=== PATIENT | female | born 1985 | race Caucasian/White ===

== ENCOUNTER 2018-05-03 13:55 | Emergency (ER) | payer OTHER ==
[~2018-05-03] VITALS: Ht 160 cm; Wt 95.4 kg
[2018-05-03 14:00] VITALS: BP 121/66
--- NOTE | 2018-05-03 14:00 | NUR ---
PATIENT AMBULATED TO ER BED 8.
--- NOTE | 2018-05-03 14:17 | NUR ---
PT C/O L EAR PAIN. WAS SEEN AT [facility] AT GIVEN DROPS AND ANTIOBIOTIC, NO RELIEF ALSO C/O COLD SYMPTOMS. VSS; PATIENT POSITIONED FOR COMFORT; HOB ELEVATED; BEDRAILS UP X1; BED DOWN. ER MD MADE AWARE OF PT STATUS.
--- NOTE | 2018-05-03 14:45 | NUR ---
Patient being evaluated by physician at bedside.
[2018-05-03 15:03] VITALS: BP 119/75
--- NOTE | 2018-05-03 15:03 | NUR ---
Patient discharged with v/s stable. Written and verbal after care instructions given and explained. Patient alert, oriented and verbalized understanding of instructions. Ambulatory with steady gait. All questions addressed prior to discharge. ID band removed. Patient advised to follow up with PMD. Rx of AUGMENTIN 875MG given. Patient educated on indication of medication including possible reaction and side effects. Opportunity to ask questions provided and answered.
== END 2018-05-03 15:03 | disposition home or self-care (01) ==
LOC: MED 13:55
DX: H66.43 Suppurative otitis media, unspecified, bilateral (principal)
CPT/HCPCS: 99283

== ENCOUNTER 2020-02-08 22:26 | Emergency (ER) | payer OTHER ==
[~2020-02-08] VITALS: Ht 160 cm; Wt 82.6 kg
[2020-02-08 22:29] VITALS: BP 129/69
[2020-02-08] MEDS ORDERED: KETOROLAC 60 MG/2 ML VIAL IM ONE (22:40)
[2020-02-08] MEDS ORDERED: HYDROcodone/APAP 5/325 MG 1 TAB TAB PO ONE (23:20)
[2020-02-09 00:36] VITALS: BP 129/69
== END 2020-02-09 00:36 | disposition home or self-care (01) ==
LOC: MED 22:26
DX: S82.892A Other fracture of left lower leg, initial encounter for closed fracture (principal); Z90.49 Acquired absence of other specified parts of digestive tract; W18.39XA Other fall on same level, initial encounter; Y93.89 Activity, other specified; Y92.89 Other specified places as the place of occurrence of the external cause; Y99.8 Other external cause status
CPT/HCPCS: 29515; 73590; 73610; 73630; 96372; 99284; J1885; Q0092

== ENCOUNTER 2020-04-19 14:49 | Emergency (ER) | payer OTHER ==
[~2020-04-19] VITALS: Ht 160 cm; Wt 110.7 kg
[2020-04-19 14:58] VITALS: BP 106/68
[2020-04-19 15:27] VITALS: BP 106/68
== END 2020-04-19 15:27 | disposition home or self-care (01) ==
LOC: MED 14:49
DX: R07.9 Chest pain, unspecified (principal); Z98.51 Tubal ligation status; Z90.49 Acquired absence of other specified parts of digestive tract
CPT/HCPCS: 93005; 99283

== ENCOUNTER 2020-07-30 17:37 | Observation (INO) | payer OTHER, SELFPAY ==
[~2020-07-30] VITALS: Ht 160 cm; Wt 112.9 kg
[2020-07-30 17:45] VITALS: BP 125/52
--- NOTE | 2020-07-30 17:55 | NUR ---
PATIENT AMBULATED TO BED 11.
--- NOTE | 2020-07-30 18:01 | NUR ---
DR CHENEY AT BEDSIDE FOR EVALUATION
--- NOTE | 2020-07-30 18:05 | NUR ---
YULIANA RN AT BEDSIDE FOR EKG
--- NOTE | 2020-07-30 18:07 | NUR ---
RAD AT BEDSIDE
--- NOTE | 2020-07-30 18:13 | NUR ---
LAB AT BEDSIDE
--- NOTE | 2020-07-30 18:15 | NUR ---
35 Y/O MALE C/O LEFT CHEST PAIN RADIATING TO LEFT ARM/SHOULDER. PT STATES PAIN HAS BEEN INTERMITTENT SINCE 03/2020 BUT THE LAST X5 DAYS HAVE BEEN WORSE. PT STATES SHE HAS NAUSEA/VOMITING AND DIARRHEA X1 MONTH. O2 SAT 97% AT THIS TIME. PT DENIES PAIN AT THIS TIME. SHE STATES SHE HAS NUMBNESS IN HER LEFT SHOULDER AT THIS TIME AND CHEST PAIN WHEN SHE BREATHS IN. ON ASSESSMENT, HYPERACTIVE BOWEL SOUNDS ALL FOUR QUADRANTS AND CLEAR BREATH SOUNDS BILATERAL THROUGHOUT. PT STATED SHE HAS BEEN FATIGUED/TIRED/ LACK OF ENERGY X5 DAYS. PT STATES SHE HAS BEEN UNDER A LOT OF STRESS LATELY. PT IS A&O X4 WITH EVEN AND UNLABORED RESPIRATIONS. PT LAYING IN BED WITH IT IN THE LOWEST POSITION, BRAKES LOCKED, X1 SIDERAIL UP. COVID TESTED POSITIVE 06/10/20 & NEGATIVE 07/02/20 PMH: ANXIETY, PANIC ATTACKS, SUBSTANCE ABUSE- METH- 8MOS CLEAN. NKA
[2020-07-30 18:18] LABS: BASOPHILS % (AUTO) 0.9 % (0.0-2.0); EOSINOPHILS # (AUTO) 0.1 K/uL (0-0.4); EOSINOPHILS % (AUTO) 2.5 % (0.0-4.0); HEMATOCRIT 37.3 % (36-48); HEMOGLOBIN 12.7 g/dL (12.0-16.0); LYMPHOCYTES # (AUTO) 1.5 K/uL (2.5-16.5); LYMPHOCYTES % (AUTO) 29.4 % (20.5-51.1); MEAN CORPUSCULAR HEMOGLOBIN 28 pg (27-31); MEAN CORPUSCULAR HGB CONC 34 g/dL (33-37); MEAN CORPUSCULAR VOLUME 81.9 fL (80-94); MONOCYTES # (AUTO) 0.6 K/uL (0.8-1.0); MONOCYTES % (AUTO) 11.3 % (1.7-9.3); NEUTROPHILS # (AUTO) 2.8 K/uL (1.8-7.7); NEUTROPHILS % (AUTO) 55.9 % (42.2-75.2); PLATELET COUNT (AUTO) 280 K/uL (140-450); RED BLOOD CELL COUNT(AUTO) 4.55 MIL/uL (4.20-5.40); RED CELL DISTRIBUTION WIDTH 15.7 % (11.6-13.7)
[2020-07-30 18:32] LABS: ALBUMIN 3.6 g/dL (3.4-5.0); ANION GAP 13.3 (8-16); CARBON DIOXIDE 25.9 mmol/L (21-32); CREATININE 0.5 mg/dL (0.6-1.3); POTASSIUM 3.2 mmol/L (3.5-5.1); TOTAL BILIRUBIN 0.4 mg/dL (0.0-1.0)
--- NOTE | 2020-07-30 18:50 | NUR ---
PT TAKEN TO CT VIA W/C
--- NOTE | 2020-07-30 19:20 | NUR ---
RECEIVED REPORT FROM SCOTTY HANNON
--- NOTE | 2020-07-30 19:21 | NUR ---
REPORT GIVEN TO DADA HANNON. TRANSFER OF CARE AT THIS TIME
[2020-07-30] MEDS ORDERED: LORazepam 1 MG TAB PO ONE (19:25)
--- NOTE | 2020-07-30 19:26 | NUR ---
PT REMAINS ON BEDSIDE MONITOR, V/S WNL. PT C/O SHARP APIN TO LEFT CHEST RADIATINGINTO HER BACK 10/17. PT STATES SHE IS VERY ANXIOUS, REQUESTING MED FOR ANXIETY, AWARE
--- NOTE | 2020-07-30 19:53 | NUR ---
PT RESTING MORE COMFORTABLY AT THIS TIME, NOT FEELING SO ANXIOUS
--- NOTE | 2020-07-30 21:06 | NUR ---
PT STILL C/O SHARP APIN RO RIGHT CHEST THAT RADIATES TO BACK AND NUMBNESS TO LEFT SIDE
[2020-07-30] MEDS ORDERED: HYDROcodone/APAP 5/325 MG 1 TAB TAB PO ONE (21:20)
--- NOTE | 2020-07-30 21:25 | NUR ---
VITA SWAB COLLECTED AND TAKEN TO LAB
--- NOTE | 2020-07-30 21:41 | NUR ---
BELONGINGS LIST COMPLETED AND VERIFIED BY PT AND SIGNED
[2020-07-30] MEDS ORDERED: ACETAMINOPHEN 325 MG TAB PO PRN (22:15)
[2020-07-30] MEDS ORDERED: HYDROmorphone PFS 2 MG/ML SYR IVP PRN (22:15)
--- NOTE | 2020-07-30 22:45 | NUR ---
BROUGHT MORE BELONGINGS FOR PT, NEW ITEMS ENTERED ON BELONGING LIST. PT ALSO STATES HER PAIN HAS INCREASED 8/10 TO SHOULDER
--- NOTE | 2020-07-30 23:05 | NUR ---
Hand-off report received via phone from JACOB Simms RN for continuity of care for Virginia Guillen with Left chest Pain radiating to left shoulder and arm, nausea/vomiting and diarrhea for persisting for past 5 days but initially began one month ago. Medical history of Meth abuse with last use December 2019 and history of panic attacks. Awaiting arrival to 103A.
--- NOTE | 2020-07-30 23:30 | NUR ---
Admission assessment initiated. Pt arrived to floor A&Ox4 with c/o Chest pain. Tele in place SR 90's. Pt appears relaxed and calm.
--- NOTE | 2020-07-30 23:43 | NUR ---
Patient will be admitted to care of DR CRAWLEY. Admited to TELE. Will go to room 103A. Belongings list completed. Report to MILES HANNON.
[2020-07-31] VITALS: BP 101/51
[2020-07-31] MEDS: LORazepam 0.5 MG TAB PO PRN ×3 (02:10→18:29)
[2020-07-31 04:00] VITALS: BP 98/58
--- NOTE | 2020-07-31 07:30 | NUR ---
Hand off report to on-coming RN for continuity of care. Pt swabbed for MRSA bilat nares. Speciment to lab.
[2020-07-31 07:47] LABS: BASOPHILS % (AUTO) 0.9 % (0.0-2.0); EOSINOPHILS # (AUTO) 0.1 K/uL (0-0.4); EOSINOPHILS % (AUTO) 3.4 % (0.0-4.0); HEMATOCRIT 35.1 % (36-48); HEMOGLOBIN 11.9 g/dL (12.0-16.0); LYMPHOCYTES # (AUTO) 1.6 K/uL (2.5-16.5); LYMPHOCYTES % (AUTO) 37.9 % (20.5-51.1); MEAN CORPUSCULAR HEMOGLOBIN 28 pg (27-31); MEAN CORPUSCULAR HGB CONC 34 g/dL (33-37); MEAN CORPUSCULAR VOLUME 82.6 fL (80-94); MONOCYTES # (AUTO) 0.5 K/uL (0.8-1.0); MONOCYTES % (AUTO) 12.4 % (1.7-9.3); NEUTROPHILS # (AUTO) 1.9 K/uL (1.8-7.7); NEUTROPHILS % (AUTO) 45.4 % (42.2-75.2); PLATELET COUNT (AUTO) 267 K/uL (140-450); RED BLOOD CELL COUNT(AUTO) 4.25 MIL/uL (4.20-5.40); RED CELL DISTRIBUTION WIDTH 15.5 % (11.6-13.7); WHITE BLOOD COUNT (AUTO) 4.1 K/uL (4.8-10.8)
[2020-07-31 07:48] LABS: CHOL/HDL RATIO 3.9 (1-4.5)
[2020-07-31 07:52] LABS: ALBUMIN 3.3 g/dL (3.4-5.0); ANION GAP 13.2 (8-16); CREATININE 0.5 mg/dL (0.6-1.3); POTASSIUM 3.2 mmol/L (3.5-5.1); TOTAL BILIRUBIN 0.3 mg/dL (0.0-1.0)
[2020-07-31 08:00] VITALS: BP 99/66
--- NOTE | 2020-07-31 08:07 | NUR ---
PATIENT IS AOX4, SINUS RHYTHM ON GEOSCIENCES FACULTY MEMBER, RESPIRATIONS EVEN AND UNLABORED ON ROOM AIR. REPORTS MILD CHEST TIGHTNESS/PRESSURE RADIATING TO LEFT ARM. ALSO REPORTS NUMBNESS/WEAKNESS IN BILATERAL LOWER EXTREMITIES. PATIENT WAS ABLE TO AMBULATE INDEPENDENTLY TO BATHROOM WITH NO ISSUES. HAS BEEN HAVING DIARRHEA, LAST EPISODE 07/31. TOLERATING BREAKFAST WELL WITH NO N/V. WILL CONTINUE TO MONITOR.
[2020-07-31] MEDS ORDERED: ASPIRIN 81 MG TAB.CHEW PO SCH (09:00)
[2020-07-31] MEDS ORDERED: POTASSIUM CHLORIDE 10 MEQ TABER PO SCH (10:00)
[2020-07-31] MEDS: ASPIRIN 81 MG TAB.CHEW PO SCH (10:01)
[2020-07-31] MEDS: ENOXAPARIN 40 MG/0.4 ML SYR SUBQ SCH (10:05)
--- NOTE | 2020-07-31 10:37 | NUR ---
PATIENT HAS BEEN SCREENED AND CATEGORIZED HIGH NUTRITION RISK. PATIENT WILL BE SEEN WITHIN 1-2 DAYS OF ADMISSION. 07/31/20 - 08/01/20 DONTE MUNROE MBA, RD
[2020-07-31 12:00] VITALS: BP 124/69
--- NOTE | 2020-07-31 13:42 | NUR ---
DISCHARGE PLANNING: DOUG RECEIVED PHYSICIANS ORDER FOR PATIENT TRANSFER [facility] FOR MRI. DOUG FAXED ORDER TO [facility] AND SPOKE WITH TAMIKA. TAMIKA PROVIDED AUTH #[id number] FOR TRANSPORTATION AND HOSPITAL STAY. DOUG CONTACTED [facility] [phone] AND SPOKE WITH JOHNNY. JOHNNY PROVIDED FAX NUMBER [phone] BUT STATED THAT THEY WERE UNABLE TO TAKE PATIENT TODAY. DOUG CONTACTED [facility] AND SPOKE WITH EVER [phone]. EVER PROVIDED FAX NUMBER [phone]. DOUG FAXED REFERRAL TO [facility] AND TO [facility].
[2020-07-31] MEDS: GABAPENTIN 300 MG CAP PO SCH (15:39)
--- NOTE | 2020-07-31 15:51 | NUR ---
PATIENT CAME BACK FROM CT SPINE. EXPLAINED INDICATION OF NEW MEDICATION GABAPENTIN. PT VERBALIZED UNDERSTANDING. STILL REPORTS CHEST PRESSURE THAT HAS BEEN CHRONIC, PAIN IS TOLERABLE AT THIS TIME. WILL CONTINUE TO MONITOR.
[2020-07-31 16:00] VITALS: BP 118/74
--- NOTE | 2020-07-31 18:33 | NUR ---
PATIENT REPORTS NO CHANGE IN NUMBNESS/TINGLING IN LEGS AND NO CHANGE IN CHEST PRESSURE/TIGHTNESS FROM INTERVENTIONS. AMBULATED TO BATHROOM, HAD 2X LOOSE BOWEL MOVEMENTS. ANXIETY IS CONTROLLED WITH PRN MEDICATIONS. TOLERATED ALL MEALS WELL WITH NO N/V. WILL ENDORSE TO NIGHT RN.
--- NOTE | 2020-07-31 19:30 | NUR ---
RECEIVED REPORT FORM JOHNIE HANNON DAYSHIFT NURSE . SHE SAID THAT SHE HAD GIVEN PT ATIVAN PO/PRN AT 1830 FOR ANXIETY. PT IN BED IN STABLE CONDITION. SHE HAS A 20G IV SITE SALINE LOCKED IN LAC. ALL UNIVERSAL FALLS PRECAUTIONS IN PLACE.
[2020-07-31 20:00] VITALS: BP 94/43
--- NOTE | 2020-07-31 20:00 | NUR ---
PT LYING IN BED V/S FOLLOWS: T 97.0 P 77 R 18 B/P 94/43 02 98% ON ROOM AIR.
--- NOTE | 2020-07-31 20:30 | NUR ---
PT LYING IN BED WITH C/O OF ANXIETY, PT NOTED SHAKING HER LEG. INFORMED PT THAT SHE ALREADY HAD HER PRN ANXIETY MEDICATION. PT SAID THAT IT HAS NOT HELPED HER AT ALL. PT ALSO C/O OF CHEST PAIN/PRESSURE 10/17. PT RECEIVED PO/PRN TYLENOL. PT SAID THAT SHE TAKES PROZAC AND HYDROXYZINE 250MG FOR ANXIETY AT HOME. PT ALSO REQUESTING PO/PRN SLEEPING MEDICATION. WILL PAGE MD WITH PT REQUESTS.
--- NOTE | 2020-07-31 21:27 | NUR ---
CALLED [facility] KENDRICK TO HAVE FILM EXAMINER MD PAGED AGAIN REGARDING PT REQUEST FOR ADDITION ANXIETY AND PAIN MEDICATIONS.
--- NOTE | 2020-07-31 22:04 | NUR ---
TEXTED MD PITTS REGARDING PT REQUESTS.
--- NOTE | 2020-07-31 22:06 | NUR ---
REPLIED NEW ORDERS NOTED.
[2020-07-31] MEDS ORDERED: TEMAZEPAM 15 MG CAP PO PRN ×2 (22:10→23:00)
--- NOTE | 2020-07-31 22:54 | NUR ---
SPOKE WITH PHARMACY, CANNOT PROCESS NEW ORDERS, ORDERS CHANGED TO RESTORIL 15MG AND OK TO D/C ATIVAN 0.5MG AND REPLACE WITH 1MG PO Q 6HRS PRN FOR ANXIETY.
--- NOTE | 2020-07-31 23:19 | NUR ---
PT GIVEN PO/PRN RESTORIL FOR SLEEPLESSNESS, PT STILL C/O 5/10 PAIN , PT SAID SHE WILL TAKE PO/PRN ORDERED NORCO FOR MODERATE PAIN.
[2020-07-31] MEDS: HYDROcodone/APAP 5/325 MG 1 TAB TAB PO PRN (23:25)
--- NOTE | 2020-07-31 23:27 | NUR ---
PO/PRN NORCO GIVEN FOR CHEST PRESSURE/PAIN.
[2020-08-01] VITALS: BP 101/54
--- NOTE | 2020-08-01 00:30 | NUR ---
PT LYING IN BED ON THE PHONE V/S FOLLOWS: T 97.1 P 77 R 18 B/P 101/54 O2 98% ON ROOM AIR. ALL UNIVERSAL PRECAUTIONS IN PLACE.
--- NOTE | 2020-08-01 02:00 | NUR ---
ROUNDS DONE, PT RESTING IN BED WITH EYES CLOSED, NO S/S OF PAIN OR DISTRESS NOTED. ALL UNIVERSAL FALLS PRECAUTIONS IN PLACE.
[2020-08-01 04:00] VITALS: BP 94/50
--- NOTE | 2020-08-01 04:00 | NUR ---
PT IN BED RESTING RESPIRATIONS EVEN AND UNLABORED ON ROOM AIR. V/S FOLLOWS: T 97.2 P 70 R 20 B/P 94/50 02 98%. ALL UNIVERSAL PRECAUTIONS IN PLACE.
[2020-08-01] MEDS: LORazepam 1 MG TAB PO PRN ×2 (05:37→16:43)
[2020-08-01] MEDS: HYDROcodone/APAP 5/325 MG 1 TAB TAB PO PRN (05:42)
--- NOTE | 2020-08-01 05:51 | NUR ---
PT AWAKE IN BED WITH C/O OF ANXIETY AND CHEST PAIN. PT GIVEN PO/PRN ATIVAN AND PO/PRN NORCO FOR 5/10 CHEST PAIN. PT SAYS HER CHEST HURTS TO THE TOUCH. SHE SAID THE RESTORIL HELPED , BUT SHE WAS JUST RESTING WITH EYES CLOSED AND NOT ASLEEP. PT SAID THE NORCO HELPED BUT DID NOT COMPLETELY TAKE AWAY THE PAIN.
[2020-08-01 06:15] LABS: ANION GAP 10.8 (8-16); CARBON DIOXIDE 25.7 mmol/L (21-32); CREATININE 0.4 mg/dL (0.6-1.3); POTASSIUM 3.5 mmol/L (3.5-5.1)
[2020-08-01 06:22] LABS: BASOPHILS % (AUTO) 0.9 % (0.0-2.0); EOSINOPHILS # (AUTO) 0.1 K/uL (0-0.4); EOSINOPHILS % (AUTO) 2.8 % (0.0-4.0); HEMATOCRIT 35.3 % (36-48); LYMPHOCYTES # (AUTO) 1.7 K/uL (2.5-16.5); LYMPHOCYTES % (AUTO) 41.8 % (20.5-51.1); MEAN CORPUSCULAR HEMOGLOBIN 28 pg (27-31); MEAN CORPUSCULAR HGB CONC 34 g/dL (33-37); MEAN CORPUSCULAR VOLUME 82.8 fL (80-94); MONOCYTES # (AUTO) 0.5 K/uL (0.8-1.0); MONOCYTES % (AUTO) 11.3 % (1.7-9.3); NEUTROPHILS # (AUTO) 1.8 K/uL (1.8-7.7); NEUTROPHILS % (AUTO) 43.2 % (42.2-75.2); PLATELET COUNT (AUTO) 251 K/uL (140-450); RED BLOOD CELL COUNT(AUTO) 4.26 MIL/uL (4.20-5.40); RED CELL DISTRIBUTION WIDTH 15.4 % (11.6-13.7); WHITE BLOOD COUNT (AUTO) 4.1 K/uL (4.8-10.8)
[2020-08-01 06:37] LABS: CHOL/HDL RATIO 4.3 (1-4.5)
--- NOTE | 2020-08-01 07:08 | NUR ---
RECEIVED REPORT FROM VARSITY BASEBALL COACH RN FOR CONTINUITY OF CARE. PATIENT ASLEEP IN BED IN RIGHT LATERAL POSITION COMFORTABLY. RESPIRATORY EVEN UNLABORED ON RA. SKIN DRY AND INTACT. IV SITE TO LEFT AC 20 G INTACT. ABDOMEN SOFT. NO ACUTE DISTRESS NOTED. SAFETY MEASURES IN PLACE, WILL CONTINUE TO MONITOR.
[2020-08-01 08:00] VITALS: BP 98/45
[2020-08-01] MEDS: ASPIRIN 81 MG TAB.CHEW PO SCH (08:49)
[2020-08-01] MEDS: ENOXAPARIN 40 MG/0.4 ML SYR SUBQ SCH (08:52)
--- NOTE | 2020-08-01 08:53 | NUR ---
SCHEDULED MEDICATIONS GIVEN, EDUCATION PROVIDED. PATIENT DENIES PAIN OR DISCOMFORT AT THIS TIME. WILL CONTINUE TO MONITOR.
[2020-08-01 12:00] VITALS: BP 139/68
--- NOTE | 2020-08-01 12:15 | NUR ---
DISCHARGE PLANNING: THIS IS A 35 Y/O FEMALE PATIENT FROM HOME, WHO CAME IN DUE TO LEFT SHOULDER PAIN, CHEST PAIN AND LEFT SIDED NUMBNESS. PAST MEDICAL HISTORY INCLUDE ANXIETY. INITIAL DIAGNOSIS OF RIGHT SIDED NUMBNESS AND WEAKNESS. CURRENT LABS INCLUDE WBC 4.1, H/H 12.0/35.3, NA/K 140/3.5, BUN/CREA 11/0.4. RAPID COVID TEST NEGATIVE. NEURO CONSULTED AND SEEN - ORDERED C SPINE CT, IF UNREMARKABLE OK TO DC AND FOLLOW UP WITH PCP.. NO EMG MACHINE AT [facility], CAN DO OUT PATIENT. PT IN PLACE. C SPINE CT - NEGATIVE. FOR POSSIBLE DC TODAY. Addendum: 08/01/20 at 1626 by Cherise Gacría CM DISCUSSED POC WITH DR. PAULINO. WILL DC TODAY AND TO ARRANGE HOME HEALTH FOR PT AND OUT PATIENT CERVICAL SPINE MRI WITH AND WITHOUT CONTRAST. DISCUSSED PLAN WITH THE PATIENT AND IS IN AGREEMENT. PER PATIENT SHE DOES NOT HAVE ANY PREFERENCE FOR HOME HEALTH. ALL QUESTIONS AND CONCERNS ANSWERED. ORDERS SENT TO [facility]. Addendum: 08/01/20 at 1637 by Alesia Heller CM CRISSY MALAGON: FAXED ORDER FOR HOME HEALTH AND OUT PATIENT MRI TO [facility]. ALSO FAXED HOME HEALTH ORDER FOR PT TO [facility]. Addendum: 08/01/20 at 165 by Alesia Heller CM CRISSY MALAGON: RECEIVED A PHONE CALL FROM [facility] [phone] THEY ARE ABLE TO ACCEPT PATIENT. Addendum: 08/01/20 at 1653 by Alesia Heller CM CRISSY MALAGON: SPOKE TO TASHI LUNDBERG SHE WILL CREATE AUTH FOR HOME HEALTH AND OUT PATIENT MRI TOMORROW MORNING. WILL FOLLOW UP Addendum: 08/01/20 at 1655 by Alesia Heller CM CRISSY MALAGON: NOTIFIED RIDDHI PASTRANA OF ACCEPTING HOME HEALTH. Addendum: 08/02/20 at 1603 by Alesia Heller CM CRISSY MALAGON: SPOKE TO TASHI LUNDBERG AT [facility] REGARDING OUT PATIENT MRI. SHE STATED THAT PATIENT CAN CALL [facility] TO SCHEDULE AN OUTPATIENT MRI. Addendum: 08/03/20 at 1306 by Alesia Heller CM CRISSY ACADEMY EDUCATION DIRECTOR: SCHEDULED PATIENT AN APPOINTMENT FOR MRI ON Saturday AT 1:30 PM. CALLED PATIENT TO NOTIFY
--- NOTE | 2020-08-01 13:11 | NUR ---
PATIENT ASLEEP IN BED COMFORTABLY, NO ACUTE DISTRESS NOTED, WILL CONTINUE TO MONITOR.
--- NOTE | 2020-08-01 13:29 | NUR ---
SOCIAL WORK NOTE: Patient's Orientation Person Situation Place Time Information Provided By PATIENT Comments SW WAS UNABLE TO MEET PATIENT AT BEDSIDE. SW COMPLETED ASSESSMENT WITH PATIENT TELEPHONICALLY. Field Spec, Realtionship and Phone Number BRISA PARKER SIGNIFICANT OTHER [phone] Healthcare Power of Manager Psychology No Does Patient Have a POLST No Identifying Problems No Social Work Triggers Is A Social Work Consult Needed No Mandate Report Filed No Explanation Of Identifying Problems PATIENT IS A 35-YEAR-OLD FEMALE ADMITTED FOR RIGHT SIDED NUMBNESS. PATIENT HAS PMHX OF ANXIETY. PATIENT REPORTED NO HX OF MENTAL HEALTH OR SUBSTANCE ABUSE. Admitted From Home Pre-Admission Level Of Functioning Status Independent/Ambulatory Prior Resources/Services Used In Last 12 Months No Prior Resources Used Prior DME No Prior DME Used Dialysis Comments N/A Living Situation Lives With Family House Patient Had Caregiver No Home Support No Caregiver Issues Financial Issues No Known Financial Issue Referral To The Financial Counselor Needed No Factors/Needs No D/C Needs Identified Pt/Rep Participated In Discharge Plan Yes Patient/Family Agress With Discharge Plan Yes Discharge Plan Comments TENTATIVE DISCHARGE PLAN IS FOR PATIENT TO RETURN HOME. DC Plan Status Initiated
--- NOTE | 2020-08-01 14:45 | NUR ---
PATIENT WALKING IN THE HALLWAY WITH MASK. PATIENT STATED THAT SHE'S BEEN TIRED OF LYING IN THE BED. WILL CONTINUE TO MONITOR.
--- NOTE | 2020-08-01 15:35 | NUR ---
08/01/20 RD INITIAL ASSESSMENT COMPLETED PLEASE REFER TO NUTRITION ASSESSMENT UNDER CARE ACTIVITY FOR ESTIMATED NUTRITIONAL NEEDS. 1. CONTINUE REGULAR DIET TOLERATED 2. RD TO FOLLOW-UP 5-7 DAYS, LOW RISK CARLITO HURT RD
[2020-08-01 16:00] VITALS: BP 105/58
[2020-08-01] MEDS ORDERED: ATA25 PO (16:28)
[2020-08-01] MEDS ORDERED: GABA300C1 PO (16:32)
[2020-08-01] MEDS: GABAPENTIN 300 MG CAP PO SCH (16:43)
--- NOTE | 2020-08-01 16:43 | NUR ---
ATIVAN GIVEN FOR ANXIETY. SCHEDULED GABAPENTIN GIVEN. INFORMED PATIENT THAT SHE IS GOING TO BE DISCHARGED.
--- NOTE | 2020-08-01 17:40 | NUR ---
DISCHARGE INSTRUCTIONS PROVIDED/ DISCHARGE PAPER SIGNED. DISCHARGE PROTOCOL FOLLOWED. IV REMOVED WITH INTACT CANNULA. PATIENT IN STABLE CONDITION.
--- NOTE | 2020-08-01 17:42 | NUR ---
WALKED PATIENT OUT OF THE HOSPITAL. DISCHARGED IN STABLE CONDITION.
== END 2020-08-01 17:40 | disposition home or self-care (01) ==
LOC: MED 17:37 → MMU 22:24
PROVIDERS: ADMIT Internal Medicine; ATTEND Internal Medicine
DX: R20.0 Anesthesia of skin (principal); Z20.822 Contact with and (suspected) exposure to COVID-19; R20.2 Paresthesia of skin; M25.512 Pain in left shoulder; R07.89 Other chest pain; E66.9 Obesity, unspecified; F41.0 Panic disorder [episodic paroxysmal anxiety]; M54.16 Radiculopathy, lumbar region; M54.12 Radiculopathy, cervical region; F15.10 Other stimulant abuse, uncomplicated; Z79.899 Other long term (current) drug therapy; Z68.41 Body mass index [BMI] 40.0-44.9, adult
CPT/HCPCS: 36415; 70450; 71045; 72125; 80048; 80053; 80061; 83880; 84484; 85025; 85651; 87081; 87426; 93005; 96372; 96374; 97162; 99285; G0378; J1170; J1650; J7060

== ENCOUNTER 2021-02-03 11:26 | Emergency (ER) | payer MEDICAID, SELFPAY ==
[~2021-02-03] VITALS: Ht 160 cm; Wt 105.2 kg
[~2021-02-03 11:26] MED LIST: ATA25 PO; GABA300C1 PO
[2021-02-03 11:31] VITALS: BP 112/71
--- NOTE | 2021-02-03 11:40 | NUR ---
pt ambulated to bed 4
--- NOTE | 2021-02-03 11:44 | NUR ---
35yo f c/o right upper abdomen x 3 days. pain 10/10, sharp, aggravated by bending forward. reports 4 episodes of vomiting in the last 3 days. denies diarrhea, denies urinary symptoms. lbm yesterday. pt takes ibuprofen which provides no relief, last taken 4pm yesterday. pmh: anxiety, depression, gallstones medS: unable to recall nka
--- NOTE | 2021-02-03 11:44 | NUR ---
dr. richardson bedside evaluating pt
[2021-02-03] MEDS: KETOROLAC 60 MG/2 ML VIAL IM ONE (11:57)
[2021-02-03] MEDS: ONDANSETRON 4 MG ODT PO ONE (11:57)
[2021-02-03] MEDS ORDERED: IBUP-2213 PO (12:04)
[2021-02-03] MEDS ORDERED: ONDA8TAB87 PO (12:04)
[2021-02-03] MEDS ORDERED: ACET-8386 PO (12:04)
[2021-02-03] MEDS ORDERED: CIPR500T4 PO (12:04)
[2021-02-03 12:11] VITALS: BP 112/71
--- NOTE | 2021-02-03 12:12 | NUR ---
Patient discharged with v/s stable. Written and verbal after care instructions given and explained. Patient alert, oriented and verbalized understanding of instructions. Ambulatory with steady gait. All questions addressed prior to discharge. ID band removed. Patient advised to follow up with PMD. Rx of zofran, ibuprofen, ciprofloaxcin, and hydrocodone/acetaminophen given. Patient educated on indication of medication including possible reaction and side effects. Opportunity to ask questions provided and answered.
== END 2021-02-03 12:12 | disposition home or self-care (01) ==
LOC: MED 11:26
DX: R10.11 Right upper quadrant pain (principal); R11.2 Nausea with vomiting, unspecified; N39.0 Urinary tract infection, site not specified
CPT/HCPCS: 81002; 81025; 96372; 99283; J1885; Q0162

== ENCOUNTER 2021-03-04 13:35 | Emergency (ER) | payer MEDICAID, SELFPAY ==
[~2021-03-04] VITALS: Ht 160 cm; Wt 104.8 kg
[~2021-03-04 13:35] MED LIST changes: +ACET-8386 PO; +CIPR500T4 PO; +IBUP-2213 PO; +ONDA8TAB87 PO
[2021-03-04 13:42] VITALS: BP 129/72
--- NOTE | 2021-03-04 13:50 | NUR ---
PT AMBULATED TO ER BED 7
--- NOTE | 2021-03-04 13:58 | NUR ---
RAD AT BEDSIDE
--- NOTE | 2021-03-04 14:00 | NUR ---
35 Y/O FEMALE C/O CHEST PAIN STARTED YESTERDAY. PT ALSO C/O LOWER BACK PAIN, STATES SHE FEELS TINGLING SENSATION FROM TOP OF SPINE RADIATING DOWN SPINE. DENIES FEVER OR CHILLS. PT RATES PAIN 8/10 THAT SHE DESCRIBES "FEELS LIKE LABOR PAIN". PT STATES CHEST PAIN RADIATES TO L SHOULDER AND DESCRIBES THE CHEST PAIN "FEELS LIKE A PANICK ATTACK" PT A/O X4 WITH EVEN AND UNLABORED RESPIRATIONS PMH:DENIES PSYCH: ANXIETY, DEPRESSION, PANIC DISORDER, BIPOLAR NKDA
--- NOTE | 2021-03-04 14:07 | NUR ---
EMT AT BEDSIDE FOR EKG
--- NOTE | 2021-03-04 14:10 | NUR ---
PER ERMD [address] ON PT AND CAME BACK NSR AT 76 HR.
--- NOTE | 2021-03-04 14:40 | NUR ---
KARY BROWN AT BEDSIDE EVALUATING PT
[2021-03-04] MEDS ORDERED: KETOROLAC 30 MG/ML VIAL IM ONE (14:45)
[2021-03-04] MEDS ORDERED: CYCLOBENZAPRINE 10 MG TAB PO ONE (14:45)
--- NOTE | 2021-03-04 15:30 | NUR ---
PT REPORTS NO IMPROVEMENT OF PAIN AFTER MEDICATION. KARY BROWN MADE AWARE
[2021-03-04] MEDS ORDERED: HYDROcodone/APAP 5/325 MG 1 TAB TAB PO ONE (15:35)
[2021-03-04] MEDS ORDERED: METH-1681 PO (16:28)
[2021-03-04] MEDS ORDERED: LIDO1ADH47 TP (16:28)
[2021-03-04] MEDS ORDERED: NAPR-54 PO (16:28)
[2021-03-04] MEDS ORDERED: NITR100C7 PO (16:28)
[2021-03-04] MEDS ORDERED: ONDANSETRON 4 MG ODT PO ONE (16:30)
--- NOTE | 2021-03-04 16:54 | NUR ---
Patient discharged with v/s stable. Written and verbal after care instructions ABOUT UTI AND SCIATICA given and explained. Patient alert, oriented and verbalized understanding of instructions. Wheel Chair Assisted with to car. All questions addressed prior to discharge. ID band removed. Patient advised to follow up with PMD. Rx of LIDOCAINE, ROVAXIN, NAPROXEN, AND MACROBID given. Patient educated on indication of medication including possible reaction and side effects. Opportunity to ask questions provided and answered.
[2021-03-04 17:00] VITALS: BP 101/50
== END 2021-03-04 16:54 | disposition home or self-care (01) ==
LOC: MED 13:35
DX: M54.42 Lumbago with sciatica, left side (principal); N39.0 Urinary tract infection, site not specified; Z90.49 Acquired absence of other specified parts of digestive tract; Z98.890 Other specified postprocedural states; Z79.899 Other long term (current) drug therapy
CPT/HCPCS: 71045; 81002; 81025; 93005; 96372; 99284; J1885; Q0092; Q0162